=== PATIENT | male | born 1960 | race Caucasian/White ===

== ENCOUNTER 2016-08-09 15:35 | Inpatient (IN) | payer OTHER ==
[~2016-08-09] VITALS: Ht 177.8 cm; Wt 99.8 kg
[2016-08-09 17:13] LABS: ABSOLUTE BASOPHIL COUNT 0.1 /CUMM (0.0-0.2); ABSOLUTE EOSINOPHIL COUNT 0.3 /CUMM (0.0-0.7); ABSOLUTE GRANULOCYTE CT 4.1 /CUMM (1.4-6.5); ABSOLUTE LYMPH COUNT 2.4 /CUMM (1.2-3.4); ABSOLUTE MONOCYTE COUNT 0.6 /CUMM (0.10-0.60); BASOPHIL % 0.7 % (0.0-2.0); EOSINOPHIL % 4.2 % (0-5); GRANULOCYTE % 54.8 % (42.2-75.2); HEMATOCRIT 44.2 % (42-52); MEAN CORPUSCULAR HGB 31.1 PG (27.0-31.0); MEAN CORPUSCULAR HGB CONC 34.9 G/DL (33.0-37.0); MEAN CORPUSCULAR VOLUME 89.2 FL (80.0-94.0); MEAN PLATELET VOLUME 7.5 FL (7.4-10.4); PLATELET COUNT 268 /CUMM (130-400); RBC DISTRIBUTION WIDTH 13.1 % (11.5-14.5); RED BLOOD CELL CT 4.95 /CUMM (4.70-6.10); WHITE BLOOD CELL COUNT 7.6 /CUMM (4.8-10.8)
[2016-08-09 17:21] LABS: PT 10.9 SEC (9.4-12.5)
--- NOTE | 2016-08-09 17:26 | ED CARDIAC/CP/PALPITATIONS ---
History of Present Illness General Chief Complaint: Chest Pain Stated Complaint: CHEST PAIN Source: patient Exam Limitations: no limitations Vital Signs & Intake/Output Vital Signs & Intake/Output ED Intake and Output 08/11 0000 08/10 1200 Intake Total 855 Output Total Balance 855 Intake, IV 855 Allergies Coded Allergies: No Known Allergies (08/09/16) Triage Note: PT TO TRIAGE WITH C/O CHEST TIGHTNESS AND MASCULAR PAIN TO R/L SIDES OF CHEST ANS BILAT UE 08/30 x5DAYS, PT DENIES SOB, DENIES ABD PAIN. VSS. PT TO [facility] FOR E[facility]. Triage Nurses Notes Reviewed? yes Onset: Gradual Duration: getting worse, intermittent Timing: recent history Location: substernal Radiation: jaw, shoulders Activities at Onset: none Prior Chest Pain/Card Workup: no prior chest pain, no prior cardiac workup Nitro Today/Relief: no nitro taken today Aspirin Today: 81 mg x 3 HPI: Patient is a 55-year-old male with a past medical history of hypertension, hyperlipidemia and type 2 diabetes who presents emergency room stating that he has had a 6 day history of intermittent chest pain and shoulder pain. Patient denies any significant physical activity or mechanism of injury. States in the past 5 days symptoms have come and gone and her paroxysmal nature in which she states that they are no worse with physical activity and sometimes onset at rest. Patient however presents emergency today with worsening pressure described as 5-10 chest heaviness substernal with radiation to jaw and shoulders. Patient took 381 mg of aspirin prior to arrival. Patient has also tried Aleve in the past with no relief of symptoms. Patient is a former smoker Denies any illicit drug use or significant alcohol use. No history of stress test. Denies any fevers chills palpitations diaphoresis nausea vomiting hemoptysis leg swelling cough\ (ANA LAURA ROSAS,KIMBERLY) Reconcile Medications Apremilast (Otezla) 10 MG (4)-20 MG (4)-30 MG (19) TAB.DS.PK 30 MG PO BID PSORIASIS (Reported) Aspirin (Aspirin*) 81 MG TAB.CHEW 81 MG PO DAILY BLOOD THINNER Atorvastatin Calcium 80 MG TABLET 80 MG PO 1700 CHOLESTROL Carvedilol (Coreg) 6.25 MG TABLET 3.125 MG PO BID HEART Fluticasone Propionate 50 MCG/ACTUATION SPRAY.SUSP 2 SPRAY NASB DAILY ALLERGIES (Reported) Heparin Sod,Porcine/0.9 % NaCl (Heparin-Ns 25,000 Units/250 Ml) 25,000 UNIT/250 ML (100 UNIT/ML) IV.SOLN 1 BAG IV CONTINOUS INFUSION BLOOD THINNER Lisinopril (Prinivil) 20 MG TABLET 1 TAB PO DAILY HTN (Reported) Metformin HCl (Metformin HCl ER) 500 MG TAB.ER.24 2 TAB PO DAILY DIABETES ( Reported) Nitroglycerin (Nitrostat) 0.3 MG TAB.SUBL 0.4 MG SL Q 5 MINUTES X 3 DOSE PRN CHEST PAIN Nitroglycerin (Nitro-Bid) 2 % OINT...G. 1 GM TOP Q6 CHEST PAIN Ticagrelor (Brilinta) 90 MG TABLET 90 MG PO BID MYOCARDIAL INFARCTION (DAISHA ALMANZA,BRYSON) Past History Travel History Traveled to [place] past 21 day No Medical History Any Pertinent Medical History? see below for history Cardiovascular: hypertension, hyperlipidemia Endocrine: diabetes Surgical History Surgical History: non-contributory Psychosocial History What is your primary language Par[place] Tobacco Use: Quit >30 days ago ETOH Use: occasional use Illicit Drug Use: denies illicit drug use Family History Hx Contributory? No (KIMBERLY ALBERTO) Review of Systems Review of Systems Constitutional: Reports: no symptoms. EENTM: Reports: no symptoms. Respiratory: Reports: see HPI. Cardiovascular: Reports: see HPI, chest pain. GI: Reports: no symptoms. Genitourinary: Reports: no symptoms. Musculoskeletal: Reports: see HPI, joint pain. Skin: Reports: no symptoms. Neurological/Psychological: Reports: no symptoms. Hematologic/Endocrine: Reports: no symptoms. Immunologic/Allergic: Reports: no symptoms. All Other Systems: Reviewed and Negative (KIMBERLY ALBERTO) Physical Exam Physical Exam General Appearance: well developed/nourished, no apparent distress, alert Cardiovascular: regular rate/rhythm Comments: Well-developed well-nourished person in no acute distress HEENT: Normal EENT exam, extraocular motion intact, no nystagmus. Pupils equally round and reactive to light and accommodation. Nose is atraumatic. External auditory canal and Tympanic membranes clear. Pharynx normal. No swelling or edema. Neck: Supple, no lymphadenopathy, normal range of motion without pain or tenderness Back: Nontender, no CVA tenderness. Cardiovascular: Regular rate and rhythms no murmurs rubs or gallops, normal JVP Respiratory: Chest nontender. No respiratory distress.breath sounds clear to auscultation bilaterally Abdomen: Soft, nontender nondistended, no appreciable organomegaly. Normal bowel sounds. No ascites Extremity: No edema, no calf tenderness to palpation, normal and equal pulses. Neuro: Alert oriented x3, motor sensory normal, Skin: No appreciable rash on exposed skin, skin is warm and dry. Psych: Mood and affect is normal, memory and judgment is normal. Core Measures ACS in differential dx? Yes ASA ordered for poss ACS? TOOK PRIOR TO ARRIVAL Severe Sepsis Present: No Septic Shock Present: No (KIMBERLY ALBERTO) Progress Differential Diagnosis: AMI, aortic dissection, atrial fibrillation, cholecystitis, CHF/pulm edema, costochondritis, hyperkalemia, hypovolemia, hyperthyroid, hyperventilation, intracranial hemorrhage, musculoskeletal pain, myocarditis, pancreatitis, pericarditis, pneumonia, pneumothorax, PSVT, pulmonary embolism, PUD/GERD, PVCs/PACs, respiratory failure, rib fracture, sepsis, unstable angina, V-fib/V-Tach, WPW syndrome Diagnostic Imaging: Viewed by Me: Radiology Read. Radiology Impression: no acute abnormality, no fracture Initial ED EKG: NORMAL SINUS RHYTHM 74 BPM Comments: PATIENT: TEE SIERRA PRESENT AGE: 55 PATIENT ACCOUNT NO: [id number] : 58 LOCATION: [facility] ORDERING PHYSICIAN: KIMBERLY ROSAS SERVICE DATE: 08/09/16 EXAM TYPE: RAD - XRY-CHEST XRAY, PA AND LATERAL EXAMINATION: CHEST 2 VIEWS CLINICAL INFORMATION: Chest pain. COMPARISON: None. TECHNIQUE: PA and lateral views of the chest were obtained. FINDINGS: The cardiac silhouette is not enlarged. The mediastinal and hilar contours are unremarkable. There are neither pleural effusions nor pneumothoraces. There are no consolidations. The osseous structures are unremarkable. IMPRESSION: No evidence for acute disease. DICTATED BY: AARTI LAGUERRE MD DATE/TIME DICTATED:08/09/161803 OYSTER SHIPPER:RAYSA DATE/TIME TRANSCRIBED:08/09/161803 (ANA LAURA ROSAS,KIMBERLY) Plan of Care: Orders Procedure Date/time Status Add-on Test (ER Only) 08/09 1726 Active D-DIMER 08/09 1658 Complete TROPONIN LEVEL 08/09 1644 Complete PROTHROMBIN TIME 08/09 1644 Complete MAGNESIUM 08/09 1644 Complete COMPREHENSIVE METABOLIC PANEL 08/09 1644 Complete CBC WITHOUT DIFFERENTIAL 08/09 164 Complete EKG 08/09 1537 Active Current Medications Sig/Raymundo Start time Last Medication Dose Stop Time Status Admin Heparin Sodium 25,000 UNIT Q24H 08/09 1829 UNVr (Porcine) (Heparin) Sodium Chloride 500 ML Sodium Chloride 1,000 ML BOLUS ONE 08/09 1829 AC (Normal Saline 0.9%) 08/09 192 Sodium Chloride 1,000 ML BOLUS ONE 08/09 1800 AC 08/09 (Normal Saline 0.9%) 08/09 1859 1809 Laboratory Tests 08/09/16 1726: D-Dimer Cancelled 08/09/16 1658: Anion Gap 11, Estimated GFR > 60, BUN/Creatinine Ratio 18.8, Glucose 139 H, Calcium 9.6, Magnesium 2.0, Total Bilirubin 0.4, AST 39, ALT 48, Alkaline Phosphatase 80, Troponin I 1.29 *H, Total Protein 7.9, Albumin 4.6, Globulin 3.3 , Albumin/Globulin Ratio 1.4, PT 10.9, INR 1.04, D-Dimer < 200, CBC w Diff NO MAN DIFF REQ, RBC 4.95, MCV 89.2, MCH 31.1 H, RDW 13.1, MPV 7.5, Gran % 54.8, Lymphocytes % 32.4, Monocytes % 7.9, Eosinophils % 4.2, Basophils % 0.7, Absolute Granulocytes 4.1, Absolute Lymphocytes 2.4, Absolute Monocytes 0.6, Absolute Eosinophils 0.3, Absolute Basophils 0.1, PUBS MCHC 34.9 Patient currently is resting comfortable on bed. Normal sinus rhythm on gambling monitor however is complaining of 5 out of 10 chest substernal heaviness. Nitroglycerin will be administered aspirin was administered prior to arrival. It was noted by me by nursing staff that patient went to x-ray after receiving nitroglycerin and then had a syncopal episode in which his blood pressure went from 140 TO 100 SYSTOLIC most likely due to the nitroglycerin and which fluid was administered IV Patient had no change with chest pain 08/09/2016 6:11:28 PM was noted to me to have an elevated troponin in which cardiology was paged Patient currently is resting comfortably but still complains of 5 of 10 substernal chest heaviness, blood pressure improved with normal saline. Nitroglycerin PASTE was administered Discussed admission with Dr. Dickens who advised patient to be admitted under telemetry to administer IV heparin protocol And he states that if patient's repeat troponin is elevated that ICU may be advisable Discussed admission with Dr. ASHTON who is aware (KIMBERLY ALBERTO) Departure Departure Disposition: STILL A PATIENT Condition: Stable Clinical Impression Primary Impression: Non-STEMI (non-ST elevated myocardial infarction) Referrals: SADIA ALMAZAN MD (PCP/Family) Departure Forms: Customer Survey General Discharge Information Admission Note Spoke With: ASAEL DICKENS MD, V. Documentation of Exam: Documentation of any treatments & extenuating circumstances including Concerns Regarding Discharge (functional status, medication knowledge or non-compliance, living conditions, etc.) that warrant an admission rather than observation: [ Discussed patient with Dr. Dickens who agrees with telemetry admission under his service where he advised patient to be admitted under telemetry patient requires IV heparin, cardiology consultation, repeat labs. Outpatient treatment at this time due to critical concerns of elevated troponin and non-STEMI would be medically harmful] (KIMBERLY ALBERTO) Departure Prescriptions: Current Visit Scripts Ticagrelor (Brilinta) 90 MG PO BID 30 Days Atorvastatin Calcium 80 MG PO 1700 30 Days Nitroglycerin (Nitrostat) 0.4 MG SL Q 5 MINUTES X 3 DOSE PRN CHEST PAIN 30 Days Nitroglycerin (Nitro-Bid) 1 GM TOP Q6 30 Days Carvedilol (Coreg) 3.125 MG PO BID 30 Days Aspirin (Aspirin*) 81 MG PO DAILY 30 Days Heparin Sod,Porcine/0.9 % NaCl (Heparin-Ns 25,000 Units/250 Ml) 1 BAG IV CONTINOUS INFUSION #1 PA/MAMMAL KEEPER Co-Sign Statement Statement: ED Attending supervision documentation- [X] I saw and evaluated the patient. I have also reviewed all the pertinent lab results and diagnostic results. I agree with the findings and the plan of care as documented in the PA's/MAMMAL KEEPER's documentation. [X] I have reviewed the ED Record and agree with the PA's/MAMMAL KEEPER's documentation. [] Additions or exceptions (if any) to the PAs/MAMMAL KEEPER's note and plan are summarized below: [] (DAISHA ALMANZA,BRYSON) Critical Care Note Critical Care Note Critical Care Time: 30-74 min (KIMBERLY ALBERTO)
--- NOTE | 2016-08-09 18:07 | RADIOLOGY REPORT ---
EXAMINATION: CHEST 2 VIEWS CLINICAL INFORMATION: Chest pain. COMPARISON: None. TECHNIQUE: PA and lateral views of the chest were obtained. FINDINGS: The cardiac silhouette is not enlarged. The mediastinal and hilar contours are unremarkable. There are neither pleural effusions nor pneumothoraces. There are no consolidations. The osseous structures are unremarkable. IMPRESSION: No evidence for acute disease.
--- NOTE | 2016-08-09 19:53 | History & Physical ---
MARILUZ ALMANZA,ROLF 08/09/161951: General Information and [facility] MD Statement: I have seen and personally examined TEE SIERRA and documented this H&P. The patient is a 55 year old M who presented with a patient stated chief complaint of []. Source of Information: patient Exam Limitations: no limitations History of Present Illness: Patient is a 55-year-old male with significant past medical history of hypertension, hyperlipidemia, type 2 diabetes mellitus, psoriasis, presented with chief complaints of chest pain since last 7 days. He states that he was having mild pain in his back, both arms and back of his left shoulder since last 7 days. He feels that both arms are very heavy. He had occasional chest pain which was intermittent in nature, located into the left side of the chest, 5/10, radiating to jaw and both arms. He is not aware of any specific situation or association of this pain. It was gradually progressive. So he discuss with his PCP who advised him to come to [place] [facility]. He tried Vicodin but did take it didn't help him. He took 3 tablets of aspirin in the morning. He also feels his diet. He was recently given otezla for psoriasis. He also said that he took a course of ampicillin 2 weeks ago for his tooth implant, which was done on week ago. He also said that he had rotator cuff repair surgery of the left side of the shoulder. Denies heartburn, fever, chills, sick contacts, shortness of breath, swelling of the feet, passage of similar chest pain, night sweats, blurry vision, weakness in any part of the body, recent travel, abdominal pain, palpitation. Personal history -he quit smoking 3 years ago. He smoked for around 45 years 1 pack per day. He occasionally uses cigars. He drinks alcohol socially. Denies any illicit drug abuse. Allergies-no known drug allergies Family history-father had history of multiple strokes, mother had autoimmune disease, lung cancer and colon cancer, grandfather had SD Allergies/Medications Allergies: Coded Allergies: No Known Allergies (08/09/16) Past History Travel History Traveled to [place] past 21 day No Medical History Cardiovascular: hypertension, hyperlipidemia Endocrine: diabetes Surgical History Surgical History: non-contributory Past Family/Social History Psychosocial History ETOH Use: occasional use Illicit Drug Use: denies illicit drug use Review of Systems Review of Systems Constitutional: Denies: see HPI, chills, diaphoresis, fever, malaise, weakness, unexplained weight loss. EENTM: Denies: no symptoms. Cardiovascular: Reports: chest pain. Denies: edema, orthopena, palpitations, peripheral edema, syncope. Respiratory: Denies: cough, hemoptysis, orthopnea, short of breath, sputum production, stridor, wheezing. GI: Denies: abdominal pain, bloating, constipation, diarrhea, nausea, vomiting. Genitourinary: Denies: no symptoms. Musculoskeletal: Reports: joint pain, muscle pain. Skin: Denies: no symptoms. Neurological/Psychological: Denies: no symptoms. Hematologic/Endocrine: Denies: no symptoms. Exam & Diagnostic Data Last 24 Hrs of Vital Signs/I&O Vital Signs Date Time Temp Pulse Resp B/P B/P Pulse O2 O2 Flow FiO2 Mean Ox Delivery Rate 08/10 2119 99.3 78 20 124/70 96 08/09 2050 98.5 76 18 128/60 94 08/09 1903 98.2 79 18 139/74 199 Nasal 2.0L Cannula 08/09 1811 63 16 102/59 96 Room Air 08/09 1757 98.0 69 16 104/59 96 Room Air 08/09 1723 98 Room Air 08/09 1719 67 16 140/68 98 Room Air 08/09 1539 98.3 73 18 145/82 97 Room Air Intake & Output 08/09 1600 08/09 0800 08/09 0000 Intake Total Output Total Balance Patient 97.522 kg Weight Weight Reported by Patient Measurement Method Physical Exam General Appearance Alert, Oriented X3, Cooperative, No Acute Distress Skin No Rashes, No Breakdown HEENT Atraumatic, PERRLA Neck Supple, No JVD Cardiovascular Normal S1, Normal S2 Lungs Clear to Auscultation, Normal Air Movement Abdomen Soft, No Tenderness, distention, bowel sounds positive Neurological Normal Speech Extremities No Clubbing, No Cyanosis, No Edema Vascular Normal Pulses, Pulses Symmetrical Last 24 Hrs of Labs/Dov: Laboratory Tests 08/09/16 1726: D-Dimer Cancelled 08/09/16 1658: Anion Gap 11, Estimated GFR > 60, BUN/Creatinine Ratio 18.8, Glucose 139 H, Hemoglobin A1c Pending, Calcium 9.6, Magnesium 2.0, Total Bilirubin 0.4, AST 39, ALT 48, Alkaline Phosphatase 80, Troponin I 1.29 *H, Total Protein 7.9, Albumin 4.6, Globulin 3.3, Albumin/Globulin Ratio 1.4, TSH 1.330, Free T4 0.81, PT 10.9, INR 1.04, D-Dimer < 200, CBC w Diff NO MAN DIFF REQ, RBC 4.95, MCV 89.2, MCH 31.1 H, RDW 13.1, MPV 7.5, Gran % 54.8, Lymphocytes % 32.4, Monocytes % 7.9, Eosinophils % 4.2, Basophils % 0.7, Absolute Granulocytes 4.1, Absolute Lymphocytes 2.4, Absolute Monocytes 0.6, Absolute Eosinophils 0.3, Absolute Basophils 0.1, PUBS MCHC 34.9 08/09/16 1100: Troponin I Cancelled Diagnostic Data EKG Results Heart rate 74 per minute, inverted T waves and Q waves in II,III and aVF, nonspecific ST-T wave changes, CXR Results No any acute cardiopulmonary abnormality Assessment/Plan Assessment: Patient is a 55-year-old male with significant past medical history of hypertension, hyperlipidemia, type 2 diabetes mellitus, psoriasis, presented with chief complaints of chest pain since last 7 days.He was given nitroglycerin in [place] [facility] and after that his blood pressure went down 100, during that time, he feels very lightheaded, but recovered after IV fluid infusion. Vital signs at the time of admission-temperature 98.3, pulse 70, respiratory rate 18, blood pressure 145/82, SPO2 97% on room air EKG -Heart rate 74 per minute, inverted T waves and Q waves in II,III and aVF, nonspecific ST-T wave changes. Chest x-ray-no any active cardiopulmonary abnormality. Plan - Coronary artery alfybuf-poq-QE elevation SD * We'll admit the patient to telemetry floor * We will continue heparin drip * We will start him on tab aspirin 81 mgs PO OD * We'll continue tab atorvastatin 80 mgs PO OD HS * We'll continue tablet nitroglycerin 0.4 mg as needed. * We will do serial troponins and EKG 11 p.m. and 5 a.m. * If second set of troponin show rising trend, then we will transfer the patient into the ICU * We will give loading dose of Brille.nta 180mg once * We will keep the patient nothing by mouth for possible coronary angiographic tomorrow * We'll follow the echocardiogram, lipid panel tomorrow * Vitals every shift * Watch for arrhythmias * We'll follow Cardiologic recommendation Hypertension * We will continue tab Lisinopril 20mg PO OD Hyperlipidemia * We will continue Atorvastatin 80mg PO OD Type 2 DM * We will stop metformin for now and check blood sugar level Q6 * NovoLog according to the sliding scale * We will check HBA1C Psoriasis * we will continue home medication Diet-heart healthy diet and nothing by mouth after midnight DVT prophylaxis -heparin CODE STATUS-full code As Ranked By This Provider Problem List: 1. Non-STEMI (non-ST elevated myocardial infarction) 2. Hypertension 3. Hyperlipidemia 4. Diabetes 5. Psoriasis Core Measures/Miscellaneous Acute Coronary Syndrome ACS Diagnosis: Yes Last Known EF % 0 (not known) ALBA/ARB For EF <40% Yes ASA W/I 24hr of admit Yes Beta-Cristal W/I 24hrs No No Beta-Cristal d/t psoriasis LDL assessed W/I 24 hrs Yes Currently on Statin Yes Cerebrovascular Accident CVA/TIA Diagnosis: No Congestive Heart Failure CHF Diagnosis: No Venous Thromboembolism VTE Risk Factors: Age > 40, Obesity, Smoking No [facility] VTE prophylaxis d/t: No contraindications No VTE Pharm Prophylaxis d/t: No contraindications VTE Diagnosis: No VTE Type: NONE VTE Confirmed by (Test): NONE Severe Sepsis Severe Sepsis Present: No Septic Shock Septic Shock Present: No Miscellaneous Documentation Attending Case Discussed With: MARCO ANTONIO ALMANZA,ASAEL Barreto Primary Care Physician: SADIA ALMAZAN MD Patient sees these Specialists none Level of Patient Care: Telemetry JAZMIN ALBARADO 08/09/161953: General Information and HPI Allergies/Medications Home Med list Apremilast (Otezla) 10 MG (4)-20 MG (4)-30 MG (19) TAB.DS.PK 30 MG PO BID PSORIASIS (Reported) Aspirin (Aspirin*) 81 MG TAB.CHEW 81 MG PO DAILY BLOOD THINNER Atorvastatin Calcium 80 MG TABLET 80 MG PO 1700 CHOLESTROL Carvedilol (Coreg) 6.25 MG TABLET 3.125 MG PO BID HEART Fluticasone Propionate 50 MCG/ACTUATION SPRAY.SUSP 2 SPRAY NASB DAILY ALLERGIES (Reported) Heparin Sod,Porcine/0.9 % NaCl (Heparin-Ns 25,000 Units/250 Ml) 25,000 UNIT/250 ML (100 UNIT/ML) IV.SOLN 1 BAG IV CONTINOUS INFUSION BLOOD THINNER Lisinopril (Prinivil) 20 MG TABLET 1 TAB PO DAILY HTN (Reported) Metformin HCl (Metformin HCl ER) 500 MG TAB.ER.24 2 TAB PO DAILY DIABETES ( Reported) Nitroglycerin (Nitrostat) 0.3 MG TAB.SUBL 0.4 MG SL Q 5 MINUTES X 3 DOSE PRN CHEST PAIN Nitroglycerin (Nitro-Bid) 2 % OINT...G. 1 GM TOP Q6 CHEST PAIN Ticagrelor (Brilinta) 90 MG TABLET 90 MG PO BID MYOCARDIAL INFARCTION Resident Review Statement Resident Statement: examined this patient, discussed with multicultural internship, agreed with multicultural internship, discussed with family, reviewed EMR data (avail), discussed with nursing , discussed with case mgmt, reviewed images, amended to note Other Findings: 55 y/o male with PMH of NIDDM, HTN, HLP, and psoriasis presents to the ED with c /o chest pain that has been going on for the past 6 days now. According to the patient he was in his usual state of health until last week when he started to experience some numbness and heaviness in his left upper arm as well as pain at the back of his chest between the scapular blades. He initially attributed it to musculoskeletal pain, however, his symptoms continued up until this morning when he called his doctor who advised him to come to the ER. He states that this morning he also experienced some chest discomfort that was substernal and radiating to his jaw. He denies any fever, chills, shortness of breath, worsening of chest pain on exertion, heartburn, lifting any heavy objects, worsening of pain with positional movements or breathing. He denies any recent history of sore throat, upper respiratory infection or coming in contact with a sick person. He states that this morning he took Vicodin as well as 3 baby aspirins because he initially thought that he may have had a heart attack. Of note patient does have a history of psoriasis and was recently started on Otezla (about 5 weeks ago). Of note he is a former smoker who quit smoking about 3 years ago and had been smoking a pack a day for 45 years prior to quitting. He occasionally does smoke cigars. He denies any alcohol abuse or use of any recreational drugs. He is not allergic to any medications that he knows of and several stents. His family history is pertinent for stroke in his father at the age of 71, and autoimmune disorder and lung and colon cancer in his mother. There is no history of early cardiac disease in his family. Of note patient has been feeling very tired lately and denies having any similar chest pain prior to this event. He states that he was given sublingual nitroglycerin tablet in the ER which did help relieve his pain slightly however he continues to experience some chest discomfort. Vitals on admission BP: 145/82, HR: 73, RR:18, saturating 97% on RA which dropped to 102/59 after receiving Nitroglycerin. On physical exam he is a morbidly obese man, who is alert and oriented 3 sitting comfortably in bed. HEENT revealed PERRLA, moist mucous membranes. Examination of the neck did not reveal any elevated JVD, or cervical lymphadenopathy. I've asked exam pertinent for normal S1, S2, no murmurs rubs or gallops appreciated. Chest was clear to auscultation bilaterally. Abdominal exam is benign the abdomen soft, nontender, nondistended with bowel sounds heard in all 4 quadrants. Some additional collection which did not reveal any edema. Neuro exam was grossly unremarkable. Labs pertienent for H&H: 15.4/44.2, WBC: 7600, Platelet count 268,000. Serum chemistries pertinent for Na: 136, K: 4.4, hco3: 27, normal anion gap of 11, BUN : 15, Vr: 0.8, serum glucose of 139. LFTs revelaed AST/ALT: 39/48, alk phosp: 80 , troponin I elevated at 1.29, with D-Dimer <200, INR: 1.04. CXR showed no evidence of acute disease. EKG revealed normal sinus rhythm with a heart rate of 74, Q waves are less than 2 mm and/or not significant in leads 2, 3 and aVF, NV interval 200 MLS, QTC 420. No acut ST-T changes. In the ER he received Nitrosatt 0.4mg x1 SL, and nitrobid paste, and was started on heparin drip. Assessment and Plan: Admit to Telemetry for NSTEMI #Typical chest pain Most likely NSTEMI given elevated troponins and no ST segment elevation on EKG vs aortic dissection (no widening of medistinum on CXR, and BP 130/80 in both arms). His CONOR score is 2, with ROSCOE score of 8% Patient was already started on heparin in the ER. Continue anticoagulation and follow-up troponins and EKG at 11 PM and 5 AM. If troponins continue to trend up other acute ST-T changes on EKG transferred to the ICU for closer monitoring. Echocardiogram in a.m. to further evaluate regional wall motion abnormalities Cardiology consult with Dr. Dickens Start aspirin 81 mg daily, atorvastatin 80 mg daily, carvedilol 2.125 mg daily. Continue lisinopril 20 mg daily Administer loading dose of Brillenta 180 mg 1, and start on Brillenta 90mg BID PO. Nitroglycerin 0.4 mg tablets 3 for chest pain Hydrate with IV fluids with D5 normal saline at 75 MLS per hour Nothing by mouth after midnight for possible In a.m. #Lbe-dgwymie-adbrmkrhr diabetes mellitus Hold metformin On novolin sliding scal while NPO Follow-up hemoglobin A1c Accu-Cheks q6 while NPO - DVT prophylaxis - On IV heparin - Diet Consistent carb 2 for now and nothing by mouth after midnight - Code Status - Full Code MARCO ANTONIO ALMANZA,[place] 08/10/16 0906: Attending MD Review Statement Attending Statement Attending MD Statement: examined this patient, discuss w/resident/PA/COMMERCIAL INSTALLER, agreed w/resident/PA/COMMERCIAL INSTALLER, discussed with family, discussed with nursing Attending Assessment/Plan: This 55-year-old male with diabetes, hyperlipidemia, previous smoking presented yesterday with a stuttering history of chest pain over the past week which became more steady and severe yesterday morning. His initial EKG was normal but he has subsequently developed some inferior T-wave inversions. His initial troponin was 1.5 and has risen to over 5. His pain is improved. His physical examination is unremarkable. He is on IV heparin and has received the usual anti-ischemic treatment. He is being transferred [facility] under the care of Dr. Bahena for cardiac catheterization.
[2016-08-09] MEDS ORDERED: PRINIVIL20 M1 PO (20:40)
[2016-08-09] MEDS ORDERED: METFORMIN HCL500 M2 PO (20:40)
[2016-08-09] MEDS ORDERED: OTEZLA1 EAC1 PO (20:41)
[2016-08-09] MEDS ORDERED: SIMVASTATIN20 M2 PO (20:41)
[2016-08-09] MEDS ORDERED: FLUTICASONE PRO16 GM NASB (20:42)
[2016-08-09 21:20] VITALS: BP 124/70
[2016-08-10 02:52] LABS: PTT 52 SEC (25-37)
[2016-08-10 03:29] LABS: ABSOLUTE BASOPHIL COUNT 0.1 /CUMM (0.0-0.2); ABSOLUTE EOSINOPHIL COUNT 0.3 /CUMM (0.0-0.7); ABSOLUTE GRANULOCYTE CT 4.5 /CUMM (1.4-6.5); ABSOLUTE LYMPH COUNT 2.4 /CUMM (1.2-3.4); ABSOLUTE MONOCYTE COUNT 0.9 /CUMM (0.10-0.60); BASOPHIL % 0.6 % (0.0-2.0); EOSINOPHIL % 3.8 % (0-5); GRANULOCYTE % 55.3 % (42.2-75.2); MEAN CORPUSCULAR HGB 30.9 PG (27.0-31.0); MEAN CORPUSCULAR HGB CONC 34.5 G/DL (33.0-37.0); MEAN CORPUSCULAR VOLUME 89.7 FL (80.0-94.0); MEAN PLATELET VOLUME 7.7 FL (7.4-10.4); PLATELET COUNT 214 /CUMM (130-400); RBC DISTRIBUTION WIDTH 12.9 % (11.5-14.5); RED BLOOD CELL CT 4.32 /CUMM (4.70-6.10); WHITE BLOOD CELL COUNT 8.2 /CUMM (4.8-10.8)
[2016-08-10 03:30] LABS: HEMATOCRIT 38.8 % (42-52)
--- NOTE | 2016-08-10 04:14 | Discharge Summary ---
Visit Information Visit Dates Admission Date: 08/09/16 Discharge Date: 08/10/16 Hospital Course Course Attending Physician: MARCO ANTONIO ALMANZA,ASAEL Barreto Primary Care Physician: THA ALMANZA,[facility] Course: 55 y/o male with PMH of NIDDM, HTN, HLP, and psoriasis presented to [facility] on 08/09/16 with c/o numbness and heaviness in his left upper arm as well as pain at the back of his chest between the scapular blades that has been going on for the past 6 days, which he initially though was musculoskeletal in origin. However, he experienced substernal chest discomfort this AM that was non -exertional, and radiated to his jaw. He denied fever, chills, shortness of breath, worsening of chest pain on exertion, heartburn, lifting any heavy objects, worsening pain with postural changes or breathing. He denied any recent history of sore throat, upper respiratory infection or coming in contact with a sick person. He took Vicodin to help alleviate his pain, as well as 3 baby aspirins because he thought that he may be having a heart attack. Of note patient does have a history of psoriasis and was recently started on Otezla (about 5 weeks ago). He is a former smoker who quit smoking about 3 years ago and had been smoking a pack a day for 45 years prior to quitting. He occasionally does smoke cigars. He denies any alcohol abuse or use of any recreational drugs. He is not allergic to any medications that he knows of. Family history is pertinent for stroke in his father at the age of 71, and autoimmune disorder and lung and colon cancer in his mother. There is no history of early cardiac disease in his family. He was given sublingual nitroglycerin in the ER which did help alleviate his pain slightly, however, he continued to experience some chest discomfort. Vitals on admission BP: 145/82, HR: 73, RR:18, saturating 97% on RA which dropped to 102/59 after receiving Nitroglycerin. Physical exam pertinet for a morbidly obese man, who is alert and oriented 3 sitting comfortably in bed. HEENT revealed PERRLA, moist mucous membranes. Examination of the neck did not reveal an elevated JVD, or cervical lymphadenopathy. Cardiovascular exam pertinent for normal S1, S2, no murmurs rubs or gallops appreciated. Chest was clear to auscultation bilaterally. Abdominal exam was benign with abdomen soft, nontender, nondistended with bowel sounds heard in all 4 quadrants. Examination of LE's did not reveal any edema. Neuro exam was grossly unremarkable. Labs pertienent for H&H: 15.4/44.2, WBC: 7600, Platelet count 268,000. Serum chemistries pertinent for Na: 136, K: 4.4, HCO3: 27, normal anion gap of 11, BUN : 15, Cr: 0.8, serum glucose of 139. LFTs revelaed AST/ALT: 39/48, alk phosp: 80 , troponin I elevated at 1.29, with D-Dimer <200, INR: 1.04, TSH: 1.33, FT4: 0.81. CXR showed no evidence of acute disease. EKG revealed normal sinus rhythm with a heart rate of 74, Q waves are less than 2 mm and/or not significant in leads 2, 3 and aVF, MA interval 200 MLS, QTC 420. No acut ST-T changes. In the ER he received Nitrosatt 0.4mg x1 SL, and nitrobid paste, and was started on heparin drip. He was admitted to Telemetry for NSTEMI and subsequently transferred to the ICU for closer monitoring given rise in troponins and ongoing chest pain. The following problems were addressed during his hospital stay: #NSTEMI He was adminstered ASA 325mg X1, loading dose of Brillenta 180mg x1, Carvedilol 3.125mg BID and started on IV heparin per ACS protocol. His troponins rahat from 1.29 --> 2.77 --> 5.74, with T wave inversions in inferior leads on his EKG's. He continued to have chest discomfort and was started on Nitropaste, with minimal improvement in symptoms. He was made NPO after midnight for possible cath in AM, and is being transferred to [facility] for possibel Cath. Dr Bahena is the receiving physician. #Bwj-[id number]-ljfyrqqxg diabetes mellitus He was on Metformin 1000mg daily at home, which was held and he was placed on Novolin sliding scale while NPO. #Hyperlipidemia He was on Simvastatin 20mg at home, and was switched to Atorvastatin 80mg daily. Lipid panel was done which revealed a total cholestrol: 157, TG's: 310, LDL: 52, HDL: 43. Allergies: Coded Allergies: No Known Allergies (08/09/16) Significant Procedures: SERVICE DATE: 08/09/16-1723 EXAM TYPE: RAD - XRY-CHEST XRAY, PA AND LATERAL FINDINGS: The cardiac silhouette is not enlarged. The mediastinal and hilar contours are unremarkable. There are neither pleural effusions nor pneumothoraces. There are no consolidations. The osseous structures are unremarkable. IMPRESSION: No evidence for acute disease. Pertinent Lab Results: Laboratory Tests 08/10 08/10 08/09 0300 0215 2230 Chemistry Sodium (137 - 145 mmol/L) 138 Potassium (3.5 - 5.1 mmol/L) 4.0 Chloride (98 - 107 mmol/L) 104 Carbon Dioxide (22 - 30 mmol/L) 24 Anion Gap (5 - 16) 10 BUN (9 - 20 mg/dL) 12 Creatinine (0.7 - 1.2 mg/dL) 0.7 Estimated GFR (>60 ml/min) > 60 Glucose (65 - 99 mg/dL) 109 H Calcium (8.4 - 10.2 mg/dL) 8.7 Phosphorus (2.5 - 4.5 mg/dL) 3.4 Magnesium (1.6 - 2.3 mg/dL) 2.0 Total Bilirubin (0.2 - 1.3 mg/dL) 0.4 AST (17 - 59 U/L) 65 H ALT (21 - 72 U/L) 56 Troponin I (<0.11 ng/ml) 5.74 *H 2.77 *H Albumin (3.5 - 5.0 g/dL) 3.8 Triglycerides (<150 mg/dL) 310 H Cholesterol (< 200 MG/DL) 157 LDL Cholesterol, Calc (65 - 129 mg/dL) 52 L HDL Cholesterol (40 - 60 mg/dL) 43 Cholesterol/HDL Ratio (0.00 - 4.88 %) 4 Coagulation APTT (25 - 37 SEC) 52 H Hematology CBC w Diff NO MAN DIFF REQ WBC (4.8 - 10.8 /CUMM) 8.2 RBC (4.70 - 6.10 /CUMM) 4.32 L Hgb (14.0 - 18.0 G/DL) 13.4 L Hct (42 - 52 %) 38.8 L MCV (80.0 - 94.0 FL) 89.7 MCH (27.0 - 31.0 PG) 30.9 RDW (11.5 - 14.5 %) 12.9 Plt Count (130 - 400 /CUMM) 214 MPV (7.4 - 10.4 FL) 7.7 Gran % (42.2 - 75.2 %) 55.3 Lymphocytes % (20.5 - 51.1 %) 29.4 Monocytes % (1.7 - 9.3 %) 10.9 H Eosinophils % (0 - 5 %) 3.8 Basophils % (0.0 - 2.0 %) 0.6 Absolute Granulocytes (1.4 - 6.5 /CUMM) 4.5 Absolute Lymphocytes (1.2 - 3.4 /CUMM) 2.4 Absolute Monocytes (0.10 - 0.60 /CUMM) 0.9 H Absolute Eosinophils (0.0 - 0.7 /CUMM) 0.3 Absolute Basophils (0.0 - 0.2 /CUMM) 0.1 PUBS MCHC (33.0 - 37.0 G/DL) 34.5 08/09 08/09 08/09 1726 1658 1100 Chemistry Sodium (137 - 145 mmol/L) 136 L Potassium (3.5 - 5.1 mmol/L) 4.4 Chloride (98 - 107 mmol/L) 97 L Carbon Dioxide (22 - 30 mmol/L) 27 Anion Gap (5 - 16) 11 BUN (9 - 20 mg/dL) 15 Creatinine (0.7 - 1.2 mg/dL) 0.8 Estimated GFR (>60 ml/min) > 60 BUN/Creatinine Ratio (7 - 25 %) 18.8 Glucose (65 - 99 mg/dL) 139 H Hemoglobin A1c (4.2 - 5.8 %) Pending Calcium (8.4 - 10.2 mg/dL) 9.6 Magnesium (1.6 - 2.3 mg/dL) 2.0 Total Bilirubin (0.2 - 1.3 mg/dL) 0.4 AST (17 - 59 U/L) 39 ALT (21 - 72 U/L) 48 Alkaline Phosphatase (< 127 U/L) 80 Troponin I (<0.11 ng/ml) 1.29 *H Cancelled Total Protein (6.3 - 8.2 g/dL) 7.9 Albumin (3.5 - 5.0 g/dL) 4.6 Globulin (1.9 - 4.2 gm/dL) 3.3 Albumin/Globulin Ratio (1.1 - 2.2 %) 1.4 TSH (0.270 - 4.200 uIU/mL) 1.330 Free T4 (0.64 - 1.79 ng/dL) 0.81 Coagulation PT (9.4 - 12.5 SEC) 10.9 INR (0.90 - 1.17) 1.04 D-Dimer (70 - 232 ng/ml) Cancelled < 200 Hematology CBC w Diff NO MAN DIFF REQ WBC (4.8 - 10.8 /CUMM) 7.6 RBC (4.70 - 6.10 /CUMM) 4.95 Hgb (14.0 - 18.0 G/DL) 15.4 Hct (42 - 52 %) 44.2 MCV (80.0 - 94.0 FL) 89.2 MCH (27.0 - 31.0 PG) 31.1 H RDW (11.5 - 14.5 %) 13.1 Plt Count (130 - 400 /CUMM) 268 MPV (7.4 - 10.4 FL) 7.5 Gran % (42.2 - 75.2 %) 54.8 Lymphocytes % (20.5 - 51.1 %) 32.4 Monocytes % (1.7 - 9.3 %) 7.9 Eosinophils % (0 - 5 %) 4.2 Basophils % (0.0 - 2.0 %) 0.7 Absolute Granulocytes (1.4 - 6.5 /CUMM) 4.1 Absolute Lymphocytes (1.2 - 3.4 /CUMM) 2.4 Absolute Monocytes (0.10 - 0.60 /CUMM) 0.6 Absolute Eosinophils (0.0 - 0.7 /CUMM) 0.3 Absolute Basophils (0.0 - 0.2 /CUMM) 0.1 PUBS MCHC (33.0 - 37.0 G/DL) 34.9 Disposition Summary Disposition Principal Diagnosis: NSTEMI Additional Diagnosis: HTN Hyperlipidemia NIDDM Psoriasis Discharge Disposition: other general hospital Discharge Instructions General Discharge Information Code Status: Full Code Patient's Diet: NPO for now (Consistent carb 2) Patient's Activity: As tolerated Follow-Up Instructions/Appts: Please F/U with your primary care physician in one week. Please F/U with your svp in one week. Medications at Discharge Discharge Medications: Stop taking the following medications: Simvastatin (Simvastatin*) 20 MG TABLET ORAL Every night Days = 30 Continue taking these medications: Lisinopril (Prinivil) 20 MG TABLET 1 Tablet ORAL DAILY Days = 30 Comments: LAST RECIEVED 08/10/16 @ 0915 Metformin HCl (Metformin HCl ER) 500 MG TAB.ER.24 2 Tablet ORAL DAILY Days = 30 Comments: DID NOT RECIEVE IN HOSPITAL Apremilast (Otezla) 10 MG (4)-20 MG (4)-30 MG (19) TAB.DS.PK 30 Milligram ORAL TWICE DAILY Days = 30 Comments: DID NOT RECIEVE IN HOSPITAL Fluticasone Propionate (Fluticasone Propionate) 50 MCG/ACTUATION SPRAY.SUSP 2 [place] Both sides of nose DAILY Days = 30 Comments: DID NOT RECIEVE IN HOSPITAL Start taking the following new medications: Ticagrelor (Brilinta) 90 MG TABLET 90 Milligram ORAL TWICE DAILY Days = 30 No Refills Comments: Last Taken:08/10/16 Time:914 Atorvastatin Calcium (Atorvastatin Calcium) 80 MG TABLET 80 Milligram ORAL 5 PM Days = 30 No Refills Comments: DID NOT RECIEVE IN HOSPITAL Nitroglycerin (Nitrostat) 0.3 MG TAB.SUBL 0.4 Milligram SUBLINGUAL EVERY 5 MINUTES X 3 DOSES as needed for CHEST PAIN Days = 30 No Refills Nitroglycerin (Nitro-Bid) 2 % OINT...G. 1 Gram On the skin EVERY SIX HOURS Days = 30 No Refills Comments: Last Taken:APPLIED @ 0700 TO [facility] Time: Carvedilol (Coreg) 6.25 MG TABLET 3.125 Milligram ORAL TWICE DAILY Days = 30 No Refills Comments: Last Taken:08/10/16 Time:914 Aspirin (Aspirin*) 81 MG TAB.CHEW 81 Milligram ORAL DAILY Days = 30 No Refills Comments: Last Taken: 08/10/16 Time:914 Heparin Sod,Porcine/0.9 % NaCl (Heparin-Ns 25,000 Units/250 Ml) 25,000 UNIT/250 ML (100 UNIT/ML) IV.SOLN 1 Bag INTRAVEN CONTINUOUS INFUSION Qty = 1 No Refills Comments: CURRENT RATE IS 24ML/HR 12.2 U/KG/HR PTT PENDING AT TIME OF DC LAST PTT 52 @ 0300 Copies To: SADIA ALMAZAN MD; MARCO ANTONIO ALMANZA,ASAEL Barreto Attending MD Review Statement Documenting Attending: ASAEL DICEKNS MD, V. Other Findings: I agree with discharge summary as dictated by the Resident. Rob Dickens M.D.
[2016-08-10] MEDS ORDERED: ATORVASTATIN CA80 M1 PO (04:49)
[2016-08-10] MEDS ORDERED: NITRO-BID1 GM TOP (04:49)
[2016-08-10] MEDS ORDERED: NITROSTAT0.3 M1 SL (04:49)
[2016-08-10] MEDS ORDERED: ASPIRIN81 M4 PO (04:49)
[2016-08-10] MEDS ORDERED: BRILINTA90 M1 PO (04:49)
[2016-08-10] MEDS ORDERED: COREG6.25 M1 PO (04:49)
[2016-08-10] MEDS ORDERED: HEPARIN-NS25000 UNIT IV (04:49)
--- NOTE | 2016-08-10 04:53 | Patient Discharge Instructions ---
Discharge Instructions General Discharge Information You were seen/treated for: - NSTEMI Special Instructions: Please F/U with your primary care physician in one week. Please F/U with your rn bsn in one week. Diet Recommended Diet: Diabetic, Heart Healthy Activity Activity Self Limited: Yes Acute Coronary Syndrome Inclusion Criteria At DC or during hospital stay patient has or had the following: ACS DIAGNOSIS Yes Discharge Core Measures Meds if any: Prescribed or Continued at Discharge ALBA/ARB if EF <40% Yes Aspirin Yes Beta-Cristal Yes Statin Yes Meds if any: NOT Prescribed or Continued at Discharge Congestive Heart Failure Inclusion Criteria At DC or during hospital stay patient has or had the following: CHF DIAGNOSIS No Discharge Core Measures Meds if any: Prescribed or Continued at Discharge Meds if any: NOT Prescribed or Continued at Discharge Cerebrovascular accident Inclusion Criteria At DC or during hospital stay patient has or had the following: CVA/TIA Diagnosis No Discharge Core Measures Meds if any: Prescribed or Continued at Discharge Meds if any: NOT Prescribed or Continued at Discharge Venous thromboembolism Inclusion Criteria VTE Diagnosis No VTE Type NONE VTE Confirmed by (Test) NONE Discharge Core Measures - Per Current guidelines, there needs to be overlap - treatment for the first 5 days of Warfarin therapy. - If discharged on Warfarin prior to 5 days of - overlap therapy, the patient will need to be - assessed for post discharge needs including - *Post discharge parental anticoagulation - *Warfarin and/or parental anticoagulation education - *Follow up date to check INR post discharge At least 5 days overlap therapy as Inpatient No Meds if any: Prescribed or Continued at Discharge Note: Overlap Therapy is Warfarin and Anticoagulant Meds if any: NOT Prescribed or Continued at Discharge
[2016-08-10 08:00] VITALS: BP 128/78
--- NOTE | 2016-08-10 08:01 | Cons- CRCU ---
General Information and HPI Allergies/Medications Allergies: Coded Allergies: No Known Allergies (08/09/16) Home Med List: Apremilast (Otezla) 10 MG (4)-20 MG (4)-30 MG (19) TAB.DS.PK 30 MG PO BID PSORIASIS (Reported) Aspirin (Aspirin*) 81 MG TAB.CHEW 81 MG PO DAILY BLOOD THINNER Atorvastatin Calcium 80 MG TABLET 80 MG PO 1700 CHOLESTROL Carvedilol (Coreg) 6.25 MG TABLET 3.125 MG PO BID HEART Fluticasone Propionate 50 MCG/ACTUATION SPRAY.SUSP 2 SPRAY [place] DAILY ALLERGIES (Reported) Heparin Sod,Porcine/0.9 % NaCl (Heparin-Ns 25,000 Units/250 Ml) 25,000 UNIT/250 ML (100 UNIT/ML) IV.SOLN 1 BAG IV CONTINOUS INFUSION BLOOD THINNER Lisinopril (Prinivil) 20 MG TABLET 1 TAB PO DAILY HTN (Reported) Metformin HCl (Metformin HCl ER) 500 MG TAB.ER.24 2 TAB PO DAILY DIABETES ( Reported) Nitroglycerin (Nitrostat) 0.3 MG TAB.SUBL 0.4 MG SL Q 5 MINUTES X 3 DOSE PRN CHEST PAIN Nitroglycerin (Nitro-Bid) 2 % OINT...G. 1 GM TOP Q6 CHEST PAIN Simvastatin (Simvastatin*) 20 MG TABLET 1 TAB PO QPM CHOLESTROL (Reported) Ticagrelor (Brilinta) 90 MG TABLET 90 MG PO BID MYOCARDIAL INFARCTION Past History Travel History Traveled to [place] past 21 day No Medical History Blood Transfusion Hx: No Cardiovascular: hypertension, hyperlipidemia Endocrine: diabetes Surgical History Surgical History: non-contributory Psychosocial History Smoking Status: Former Smoker ETOH Use: occasional use Illicit Drug Use: denies illicit drug use Assessment/Plan Consult Acknowledgment - Thank you for your consult request.
--- NOTE | 2016-08-10 08:14 | PN- Resident CRCU ---
Subjective HPI/CRCU Issues: Mr Ibarra is a 55-year-old gentleman who was admitted last night owing to chest discomfort which had been lasting the last 7 days. Overnight the patient states that he was able to rest and endorses his symptoms have remarkably improved. He felt mild chest pain up until about approximately 2 AM when he was given some morphine. He is subsequently received relief and is currently comfortable. He denies any fever, chills, nausea, vomiting. He is currently awaiting evaluation by the automatic furnace operator Dr. Dickens prior to transfer to [facility] for cardiac catheterization scheduled or planned for this morning. His Thao is at bedside. 24 Hour Events: Patient's initial troponins have been elevated. He had an elevation 2.77 at 10: 30 PM and 5.74 at 3.00 AM Objective Vital Signs & I&O Last 8 Hrs of Vitals and I&O: T: 98.3 MN 71 BP 112/70 95 % on RA Exam General Appearance: well developed/nourished, no apparent distress, alert, awake Ears, Nose, Throat: normal pharynx Neck: normal inspection Respiratory: normal breath sounds Cardiovascular: regular rate/rhythm Gastrointestinal: normal bowel sounds, soft, non-tender, no organomegaly Extremities: normal inspection, normal capillary refill, normal range of motion, no edema Cranial Nerves: normal hearing, normal speech Current Medications: Current Medications Sig/Raymundo Start time Last Medication Dose Route Stop Time Status Admin Acetaminophen 650 MG Q6P PRN 08/10 1999 DCD PO Acetaminophen/ 1 TAB Q6P PRN 08/10 1999 DCD Hydrocodone Bitart PO Aspirin 81 MG DAILY 08/10 1000 DCD 08/10 PO 0914 Aspirin 325 MG ONCE ONE 08/09 2130 DC 08/09 PO 08/09 2131 2218 Atorvastatin Calcium 80 MG 1700 08/10 1700 DCD PO Carvedilol 3.125 MG BID 08/09 2200 DCD 08/10 PO 0914 Dextrose/Sodium 1,000 ML Q13H 08/09 2100 DC 08/09 Chloride IV 08/10 0959 2219 Heparin Sodium 5,000 UNIT .STK-MED ONE 08/10 0328 DC (Porcine) IV 08/10 0329 Heparin Sodium 2,994 UNIT ONCE ONE 08/10 0315 DC 08/10 (Porcine) IV 08/10 0316 0330 Heparin Sodium 0 .STK-MED ONE 08/09 1846 DC (Porcine) .ROUTE Heparin Sodium 5,000 UNIT ONCE ONE 08/09 1845 DC 08/09 (Porcine) IV 08/09 1846 1850 Heparin Sodium 25,000 UNIT Q24H 08/09 1830 DCD 08/09 (Porcine) IV 1853 Sodium Chloride 500 ML Insulin Human Regular 6 UNITS .STK-MED ONE 08/10 0005 DC IV 08/10 0006 Insulin Human Regular 0 Q6 08/09 2359 DCD 08/10 SC 0647 Lisinopril 20 MG DAILY 08/10 1000 DCD 08/10 PO 0913 Morphine Sulfate 2 MG Q4P PRN 08/09 2000 DCD 08/10 IV 0242 Nitroglycerin 1 GM Q6 08/10 0030 DCD 08/10 TOP 0657 Nitroglycerin 0.4 MG Q 5 MINUTES X 3 DO.. 08/09 2100 DCD SL Nitroglycerin 0 .STK-MED ONE 08/09 1846 DC TOP Nitroglycerin 1 GM ONCE ONE 08/09 1830 DC 08/09 TOP 08/09 1831 1850 Nitroglycerin 0 .STK-MED ONE 08/09 1731 DC SL Nitroglycerin 0.4 MG ONCE ONE 08/09 1730 DC 08/09 SL 08/09 1731 1734 Sodium Chloride 1,000 ML BOLUS ONE 08/09 1830 DC 08/09 IV 08/09 1929 1850 Sodium Chloride 1,000 ML BOLUS ONE 08/09 1800 DC 08/09 IV 08/09 1859 1809 Ticagrelor 90 MG BID 08/10 1000 DCD 08/10 PO 0913 Ticagrelor 180 MG ONCE ONE 08/09 2345 DC 08/10 PO 08/09 2346 0115 Impression/Plan Impression/Problem List Impression: Mr. Ibarra is a 55-year-old Gentleman with past medical history of hyperlipidemia , diabetes, psoriasis who presented to the emergency department on 08/09/2016 after experiencing mild chest pain and discomfort over the last 7 days. He endorses pain which radiated up to his jaw and as the pain and symptoms have not responded to any interventions he presented to the emergency department for additional work up. Non-STEMI Initial EKG done at the emergency department showed no EKG changes. Thrombolysis in Myocardial Ischemia (CONOR) score 2. ROSCOE total score: 95, Low risk - in hospital rate less than 1%. His initial troponins however have been positive and have continued to trend upwards (1.29-->2.77-->5.74-->8.72). He was initially started on IV heparin as per ACS protocol after consultation was obtained with the automatic furnace operator by the [facility] housestaff. He is currently awaiting to be transferred to [facility] for urgent Cardiac catheterization. History of diabetes Last blood sugar was 109. Currently nothing by mouth. Will continue frequent monitoring of blood sugar. DVT prophylaxis heparin IV Code: Full Code Problem List: 1. Non-STEMI (non-ST elevated myocardial infarction) 2. Hypertension 3. Hyperlipidemia 4. Diabetes 5. Psoriasis Pain Ratin Tomorrow's Labs & Rationales: NA Plan DVT/Prophylaxis: pharmacological Code Status: Full Code
[2016-08-10 09:14] VITALS: BP 112/70
--- NOTE | 2016-08-10 09:14 | PN- Cardiology ---
Subjective Subjective: The patient is having some very mild residual pain this morning. He did receive some morphine overnight. He has not had any arrhythmias. His EKG this morning shows some inferior T-wave inversions and an occasional PAC. His 3rd troponin is 5.74. Objective Vital Signs and I&Os Vital Signs Date Time Temp Pulse Resp B/P B/P Pulse O2 O2 Flow FiO2 Mean Ox Delivery Rate 08/10 0800 95 Room Air Room Air 08/10 0800 98.3 70 22 128/78 95 Room Air Room Air 08/10 0400 95 Room Air 08/09 2225 71 122/66 08/09 2120 99.3 78 20 124/70 96 08/09 2050 98.5 76 18 128/60 94 08/09 1903 98.2 79 18 139/74 199 Nasal 2.0L Cannula 08/09 1811 63 16 102/59 96 Room Air 08/09 1757 98.0 69 16 104/59 96 Room Air 08/09 1723 98 Room Air 08/09 1719 67 16 140/68 98 Room Air 08/09 1539 98.3 73 18 145/82 97 Room Air Intake & Output 08/10 1600 08/10 0800 08/10 0000 08/09 1600 08/09 0800 08/09 0000 Intake Total 855 500 Output Total Balance 855 500 Intake, IV 855 20 Intake, Oral 480 Patient 220 lb 215 lb Weight Weight Reported by Patient Reported by Patient Measurement Method Physical Exam: HEENT exam is normal Chest is clear Heart regular rhythm soft heart sounds no murmur Extremities good pulses no edema Current Medications: Current Medications Sig/Raymundo Start time Last Medication Dose Route Stop Time Status Admin Acetaminophen 650 MG Q6P PRN 08/10 1999 AC PO Acetaminophen/ 1 TAB Q6P PRN 08/10 1999 AC Hydrocodone Bitart PO Aspirin 81 MG DAILY 08/10 1000 AC PO Aspirin 325 MG ONCE ONE 08/09 2129 DC 08/09 PO 08/09 2131 2218 Atorvastatin Calcium 80 MG 1700 08/10 1700 AC PO Carvedilol 3.125 MG BID 08/09 2200 AC 08/09 PO 2225 Dextrose/Sodium 1,000 ML Q13H 08/09 2100 AC 08/09 Chloride IV 08/10 0959 2219 Heparin Sodium 2,994 UNIT ONCE ONE 08/10 0315 DC 08/10 (Porcine) IV 08/10 0316 0330 Heparin Sodium 0 .STK-MED ONE 08/09 1846 DC (Porcine) .ROUTE Heparin Sodium 5,000 UNIT ONCE ONE 08/09 1845 DC 08/09 (Porcine) IV 08/09 1846 1850 Heparin Sodium 25,000 UNIT Q24H 08/09 1830 AC 08/09 (Porcine) IV 1853 Sodium Chloride 500 ML Insulin Human Regular 6 UNITS .STK-MED ONE 08/10 0005 DC IV 08/10 0006 Insulin Human Regular 0 Q6 08/09 2359 AC 08/10 SC 0647 Lisinopril 20 MG DAILY 08/10 1000 AC PO Morphine Sulfate 2 MG Q4P PRN 08/09 2000 AC 08/10 IV 0242 Nitroglycerin 1 GM Q6 08/10 0030 AC 08/10 TOP 0657 Nitroglycerin 0.4 MG Q 5 MINUTES X 3 DO.. 08/09 2100 AC SL Nitroglycerin 0 .STK-MED ONE 08/09 1846 DC TOP Nitroglycerin 1 GM ONCE ONE 08/09 1830 DC 08/09 TOP 08/09 1831 1850 Nitroglycerin 0 .STK-MED ONE 08/09 1731 DC SL Nitroglycerin 0.4 MG ONCE ONE 08/09 1730 DC 08/09 SL 08/09 1731 1734 Sodium Chloride 1,000 ML BOLUS ONE 08/09 1830 DC 08/09 IV 08/09 1929 1850 Sodium Chloride 1,000 ML BOLUS ONE 08/09 1800 DC 08/09 IV 08/09 1859 1809 Ticagrelor 90 MG BID 08/10 1000 AC PO Ticagrelor 180 MG ONCE ONE 08/09 2345 DC 08/10 PO 08/09 2346 0115 Results Last 48 Hrs of Labs/Mics: Laboratory Tests 08/10/16 0600: Triglycerides Cancelled, Cholesterol Cancelled, LDL Cholesterol, Calc Cancelled, HDL Cholesterol Cancelled, Cholesterol/HDL Ratio Cancelled, CBC w Diff Cancelled , WBC Cancelled, RBC Cancelled, Hgb Cancelled, Hct Cancelled, MCV Cancelled, MCH Cancelled, RDW Cancelled, Plt Count Cancelled, MPV Cancelled, PUBS MCHC Cancelled 08/10/16 0300: Anion Gap 10, Estimated GFR > 60, Glucose 109 H, Calcium 8.7, Phosphorus 3.4, Magnesium 2.0, Total Bilirubin 0.4, AST 65 H, ALT 56, Troponin I 5.74 *H, Albumin 3.8, Triglycerides 310 H, Cholesterol 157, LDL Cholesterol, Calc 52 L, HDL Cholesterol 43, Cholesterol/HDL Ratio 4, CBC w Diff NO MAN DIFF REQ, RBC 4.32 L, MCV 89.7, MCH 30.9, RDW 12.9, MPV 7.7, Gran % 55.3, Lymphocytes % 29.4, Monocytes % 10.9 H, Eosinophils % 3.8, Basophils % 0.6, Absolute Granulocytes 4.5, Absolute Lymphocytes 2.4, Absolute Monocytes 0.9 H, Absolute Eosinophils 0.3, Absolute Basophils 0.1, PUBS MCHC 34.5 08/10/16 0215: APTT 52 H 08/09/16 2230: Troponin I 2.77 *H 08/09/16 1726: D-Dimer Cancelled 08/09/16 1658: Anion Gap 11, Estimated GFR > 60, BUN/Creatinine Ratio 18.8, Glucose 139 H, Hemoglobin A1c Pending, Calcium 9.6, Magnesium 2.0, Total Bilirubin 0.4, AST 39, ALT 48, Alkaline Phosphatase 80, Troponin I 1.29 *H, Total Protein 7.9, Albumin 4.6, Globulin 3.3, Albumin/Globulin Ratio 1.4, TSH 1.330, Free T4 0.81, PT 10.9, INR 1.04, D-Dimer < 200, CBC w Diff NO MAN DIFF REQ, RBC 4.95, MCV 89.2, MCH 31.1 H, RDW 13.1, MPV 7.5, Gran % 54.8, Lymphocytes % 32.4, Monocytes % 7.9, Eosinophils % 4.2, Basophils % 0.7, Absolute Granulocytes 4.1, Absolute Lymphocytes 2.4, Absolute Monocytes 0.6, Absolute Eosinophils 0.3, Absolute Basophils 0.1, PUBS MCHC 34.9 08/09/16 1100: Troponin I Cancelled Recent Imaging Studies: PATIENT: TEE SIERRA PRESENT AGE: 55 PATIENT ACCOUNT NO: [id number] : 59 LOCATION: [facility] [place] ORDERING PHYSICIAN: KIMBERLY ROSAS SERVICE DATE: 08/09/16 EXAM TYPE: RAD - XRY-CHEST XRAY, PA AND LATERAL EXAMINATION: CHEST 2 VIEWS CLINICAL INFORMATION: Chest pain. COMPARISON: None. TECHNIQUE: PA and lateral views of the chest were obtained. FINDINGS: The cardiac silhouette is not enlarged. The mediastinal and hilar contours are unremarkable. There are neither pleural effusions nor pneumothoraces. There are no consolidations. The osseous structures are unremarkable. IMPRESSION: No evidence for acute disease. DICTATED BY: AARTI LAGUERRE MD DATE/TIME DICTATED:08/09/161803 FILTER HELPER:RAYSA DATE/TIME TRANSCRIBED:08/09/161803 CONFIDENTIAL, DO NOT COPY WITHOUT APPROPRIATE AUTHORIZATION. <Electronically signed in Other Vendor System> SIGNED BY: AARTI LAGUERRE MD 08/09/161806 But I'll check with the liver done with the stress echo or not. I'll send him a thin you can just call them with the results Assessment/Plan Assessment/Plan This patient had a stuttering course of chest pain over the past week which became steady yesterday. His troponin was very positive when he got here although he had no EKG changes at that time. Subsequently his EKG has shown inferior T-wave inversions. He is still having some residual discomfort today but is fairly comfortable. He is being transferred to [facility] for urgent cardiac catheterization. Continue telemetry? Not applicable
[2016-08-10 10:17] LABS: PTT 72 SEC (25-37)
== END 2016-08-10 10:10 | disposition short-term general hospital (02) | DRG 282 ==
LOC: ERH 15:35 → ERHI 19:44 → ENRESERV 20:26 → 1NO 21:19 → CRI 08-10 00:25
PROVIDERS: Internal Medicine Infectious Disease; Physician Assistant; Physician Assistant Medical; ADMIT Internal Medicine
DX: I21.4 Non-ST elevation (NSTEMI) myocardial infarction (principal); E66.01 Morbid (severe) obesity due to excess calories; E11.9 Type 2 diabetes mellitus without complications; I25.10 Atherosclerotic heart disease of native coronary artery without angina pectoris; I10 Essential (primary) hypertension; E78.5 Hyperlipidemia, unspecified; L40.9 Psoriasis, unspecified; Z87.891 Personal history of nicotine dependence; Z68.31 Body mass index [BMI] 31.0-31.9, adult; Z79.84 Long term (current) use of oral hypoglycemic drugs
CPT/HCPCS: 1NP; 36415; 82436; 93005; 93010; 96374; 99291; J1644; J1815; J3490; J7042